=== PATIENT | male | born 1985 | race Caucasian/White ===

== ENCOUNTER 2016-10-26 11:20 | Emergency (ER) | payer OTHER | END 2016-10-26 12:36 | disposition home or self-care (01) | LOC: FER 11:20 | DX: K61.1 Rectal abscess (principal); I51.9 Heart disease, unspecified; J45.909 Unspecified asthma, uncomplicated; F17.210 Nicotine dependence, cigarettes, uncomplicated | CPT/HCPCS: 87070; 87077; 87186; 87205; 99283 ==